=== PATIENT | female | born 1975 | race Caucasian/White ===

== ENCOUNTER → 2019-01-02 08:51 | Outpatient (CLI) | payer OTHER, SELFPAY ==
--- NOTE | 2019-01-02 08:54 | DI.RAD.S_ITS ---
PROCEDURE: XR HIP W PEL IF DONE LT MIN 4V INDICATIONS: eval TECHNIQUE: AP pelvis with lateral view(s) of the bilateral hip(s). COMPARISON: None. FINDINGS: Bones: No fractures or dislocations. Pelvic ring appears intact. No suspicious bony lesions. Soft tissues: The visualized bowel gas pattern is normal. No suspicious soft tissue calcifications. IMPRESSION: Normal pelvis and bilateral hips without significant degeneration. Dictated by: Carrie Gant M.D. on 01/02/2019 at 9:38 Approved by: Carrie Gant M.D. on 01/02/2019 at 9:39
--- NOTE | 2019-01-02 08:54 | DI.RAD.S_ITS ---
PROCEDURE: XR LUMBAR SPINE MIN 4V INDICATIONS: eval TECHNIQUE: 5 views of the lumbar spine were acquired. COMPARISON: [facility], RG, MRI L-SPINE W/O CONTRAST, 11/07/2018, 13:24. FINDINGS: Bones: 5 nonrib-bearing vertebrae are present. There is normal bony alignment. No vertebral body compression fractures. No suspicious bony lesions. Mild degenerative disc and endplate spurring at the L4-5 level. Soft tissues: Overlying bowel gas pattern is normal. No suspicious soft tissue calcifications. Oblique images: Diminutive degeneration involving bilateral L5 pars interarticularis components without a definite osseous defect. IMPRESSION: Degenerative changes in the L5 pars interarticularis, likely due to facet hypertrophy. Degenerative disc and endplate change at L4-5 level. Dictated by: Carrie Gant M.D. on 01/02/2019 at 9:40 Approved by: Carrie Gant M.D. on 01/02/2019 at 10:42
== END ==
PROVIDERS: PCP Internal Medicine; Visit Provider Physical Medicine & Rehabilitation
DX: M47.817 Spondylosis without myelopathy or radiculopathy, lumbosacral region (principal); M47.816 Spondylosis without myelopathy or radiculopathy, lumbar region; G89.29 Other chronic pain
CPT/HCPCS: 72110; 73522